=== PATIENT | male | born 1950 | race Two or more races ===

== ENCOUNTER 2018-01-10 20:07 | Emergency (ER) | payer SELFPAY ==
[~2018-01-10] VITALS: Ht 170.2 cm; Wt 68.0 kg
[2018-01-10 20:13] VITALS: BP 155/80
== END 2018-01-11 | disposition left against medical advice (07) ==
LOC: ER 22:09
DX: M79.662 Pain in left lower leg (principal); F17.200 Nicotine dependence, unspecified, uncomplicated; F10.20 Alcohol dependence, uncomplicated; Z53.21 Procedure and treatment not carried out due to patient leaving prior to being seen by health care provider